=== PATIENT | female | born 1965 | race Caucasian/White ===

== ENCOUNTER 2017-03-28 22:58 | Emergency (ER) | payer BC, MEDICAID ==
[~2017-03-28] VITALS: Ht 167.6 cm; Wt 87.3 kg
[2017-03-28 23:07] VITALS: BP 135/78
--- NOTE | 2017-03-29 00:18 | NUR ---
PT TAKEN TO [facility]
--- NOTE | 2017-03-29 00:21 | NUR ---
51 Y/O F W/C/O SORETHROAT AND HEADACHES X 3 DAYS. DENIES ANY SOB AT THE MOMENT. MED CHRONIC HIVES.
--- NOTE | 2017-03-29 00:22 | NUR ---
Dr. Chiang evaluating patient
--- NOTE | 2017-03-29 00:23 | NUR ---
[facility] in [facility] - 03/29/17 at [address] Chiang evaluating patient at bedside.
[2017-03-29 00:52] VITALS: BP 133/76
--- NOTE | 2017-03-29 00:53 | NUR ---
Patient discharged with v/s stable. Written and verbal after care instructions given and explained. Patient alert, oriented and verbalized understanding of instructions. Ambulatory with steady gait. All questions addressed prior to discharge. ID band removed. Patient advised to follow up with PMD. Rx of DEXTROMETHORPHAN 15MG-6.25MG, MOTRIN 800MG, AZITHROMYCIN 250MG, given. Patient educated on indication of medication including possible reaction and side effects. Opportunity to ask questions provided and answered.
== END 2017-03-29 00:53 | disposition home or self-care (01) ==
LOC: MED 22:58
DX: J02.9 Acute pharyngitis, unspecified (principal); Z88.8 Allergy status to other drugs, medicaments and biological substances; Z88.6 Allergy status to analgesic agent; G43.909 Migraine, unspecified, not intractable, without status migrainosus
CPT/HCPCS: 99283

== ENCOUNTER 2022-10-04 10:11 | Emergency (ER) | payer BC, MEDICAID ==
[~2022-10-04] VITALS: Ht 165.1 cm; Wt 103.9 kg
[2022-10-04 10:16] VITALS: BP 126/57
--- NOTE | 2022-10-04 10:54 | NUR ---
PT AMBULATED W/ ASSIST TO BED 7
--- NOTE | 2022-10-04 11:00 | NUR ---
57YO FEMALE PT C/O INCREASED DIZZINESS X4DAYS. REPORTS INTERMITTENT EPISODES ALONG W/ BLURRY VISION AND NAUSEA [id number]. STATES FEELING "WEIRD". NOTES MOST WHEN WALKING. DENIES V/D, CHEST PAIN, SOB, FEVR OR CHILLS. PT AAOX4, AMBULATORY W/ ASSIST. HOB POSITIONED PER COMFORT. HX:CHRONIC HIVES ALLERGIES: ASPIRIN, BENADRYL , RED/PINK COLORING
[2022-10-04] MEDS: MECLIZINE 25 MG TAB PO ONE (12:05)
--- NOTE | 2022-10-04 12:20 | NUR ---
PT TAKEN TO CT VIA MARK
[2022-10-04 13:22] LABS: BARBITURATE, URINE NEGATIVE ng/ml (NEG <=200); BENZODIAZEPINE, URINE NEGATIVE ng/mL (NEG <=200); CANNABINOID, URINE NEGATIVE ng/mL (NEG <=50); COCAINE, URINE NEGATIVE ng/mL (NEG <=300); OPIATE, URINE NEGATIVE ng/mL (NEG <=2000); PHENCYCLIDINE SCREEN,URINE NEGATIVE ng/mL (NEG <=25)
[2022-10-04 14:12] LABS: BASOPHILS % (AUTO) 0.5 % (0.0-2.0); EOSINOPHILS % (AUTO) 0.7 % (0.0-4.0); HEMATOCRIT 39.9 % (36-48); HEMOGLOBIN 13.3 g/dL (12.0-16.0); LYMPHOCYTES # (AUTO) 2.2 K/uL (2.5-16.5); LYMPHOCYTES % (AUTO) 32.1 % (20.5-51.1); MEAN CORPUSCULAR HEMOGLOBIN 30 pg (27-31); MEAN CORPUSCULAR HGB CONC 33 g/dL (33-37); MEAN CORPUSCULAR VOLUME 89.7 fL (80-94); MONOCYTES # (AUTO) 0.3 K/uL (0.8-1.0); MONOCYTES % (AUTO) 3.9 % (1.7-9.3); NEUTROPHILS # (AUTO) 4.3 K/uL (1.8-7.7); NEUTROPHILS % (AUTO) 62.8 % (42.2-75.2); PLATELET COUNT (AUTO) 233 K/uL (140-450); RED BLOOD CELL COUNT(AUTO) 4.44 MIL/uL (4.20-5.40); RED CELL DISTRIBUTION WIDTH 14.4 % (11.6-13.7); WHITE BLOOD COUNT (AUTO) 6.9 K/uL (4.8-10.8)
[2022-10-04 14:32] LABS: ANION GAP 9.8 (8-16); ASPARTATE AMINOTRANSFERASE 24 U/L (15-37); CHLORIDE 107 mmol/L (98-107); CREATININE 0.6 mg/dL (0.6-1.3); GFR ARICAN-AMERICAN 132 mL/min (>90); GLUCOSE 98 mg/dL (74-106); POTASSIUM 3.8 mmol/L (3.5-5.1); SODIUM SERUM 140 mmol/L (136-145); TOTAL BILIRUBIN 0.6 mg/dL (0.0-1.0); UREA NITROGEN, BLOOD 10 mg/dL (7-18)
[2022-10-04] MEDS ORDERED: MECL-303 PO (14:44)
[2022-10-04 14:59] VITALS: BP 130/80
--- NOTE | 2022-10-04 14:59 | NUR ---
Patient discharged with v/s stable. Written and verbal after care instructions FOR DIZZINESS given and explained. Patient alert, oriented and verbalized understanding of instructions. Ambulatory with steady gait. All questions addressed prior to discharge. ID band removed. Patient advised to follow up with PMD. Rx of ANTIVERT given. Opportunity to ask questions provided and answered.
--- NOTE | 2022-10-04 15:03 | NUR ---
The patient's care was reviewed and supervised by [place] [facility], RN.
== END 2022-10-04 14:59 | disposition home or self-care (01) ==
LOC: MED 10:11
DX: R42 Dizziness and giddiness (principal); Z88.6 Allergy status to analgesic agent; Z88.8 Allergy status to other drugs, medicaments and biological substances; Z79.899 Other long term (current) drug therapy
CPT/HCPCS: 36415; 70450; 71045; 80053; 80305; 81002; 84484; 85025; 93005; 99285; J8597